=== PATIENT | male | born 1995 | race Hispanic/Latino ===

== ENCOUNTER 2021-02-19 18:02 | Emergency (ER) | payer OTHER, SELFPAY ==
[2021-02-19] MEDS ORDERED: ACETAMINOPHEN 500 MG TAB ONE (19:34)
--- NOTE | 2021-02-19 20:39 | EDPHYS ---
Physician Documentation [facility] Name: Jimmy Garcia Age: 25 yrs Sex: Male : 1995 Arrival Date: 02/19/2021 Time: 18:06 Bed Waiting Private MD: ED Physician Mohit Olmos HPI: 02/19 20:36 This 25 yrs old Male presents to ER via Ambulatory with complaints of Cough, kb Shortness Of Breath, Sore Throat. 20:36 The patient or guardian reports cough, that is intermittent, described as mild, kb difficulty breathing, flu symptoms, low-grade fever. Onset: The symptoms/episode began/occurred 3 day(s) ago. Severity of symptoms: At their worst the symptoms were mild, moderate, in the emergency department the symptoms are unchanged. Modifying factors: The symptoms are alleviated by nothing, the symptoms are aggravated by nothing. Associated signs and symptoms: Pertinent positives: fever, sore throat, Pertinent negatives: chest pain, diarrhea, ear ache, nausea, sore throat, vomiting. The patient has not experienced similar symptoms in the past. The patient has not recently seen a physician. Pt reports sore throat, fever, and difficulty breathing for 3 days. . Historical: - Allergies: 19:30 No Known Allergies; sm5 - PMHx: 19:30 None; sm5 - PSHx: 19:30 Repair of inguinal hernia; sm5 - Immunization history:: Client reports receiving the 2nd dose of the Covid vaccine. - Social history:: Smoking status: unknown. ROS: 20:37 Abdomen/GI: Negative for abdominal pain, nausea, vomiting, diarrhea, and constipation. kb 20:37 Constitutional: Positive for fever. 20:37 ENT: Positive for sore throat. 20:37 Respiratory: Positive for cough, shortness of breath. 20:37 All other systems are negative. Exam: 20:37 Constitutional: This is a well developed, well nourished patient who is awake, alert, kb and in no acute distress. Head/Face: Normocephalic, atraumatic. ENT: Moist Mucous membranes Cardiovascular: Regular rate and rhythm with a normal S1 and S2. No gallops, murmurs, or rubs. No pulse deficits. Respiratory: Respirations even and unlabored. No increased work of breathing. Talking in full sentences Skin: Warm, dry with normal turgor. Normal color. MS/ Extremity: Pulses equal, no cyanosis. Neurovascular intact. Full, normal range of motion. Neuro: Awake and alert, GCS 15, oriented to person, place, time, and situation. Moves all extremities. Normal gait. Psych: Awake, alert, with orientation to person, place and time. Behavior, mood, and affect are within normal limits. Vital Signs: 19:29 BP 114 / 63; Pulse 107; Resp 19; Temp 102(TE); Pulse Ox 100% on R/A; sm5 20:59 BP 115 / 69; Pulse 88; Resp 18; Temp 98.9; Pulse Ox 100% ; sm5 MDM: 19:32 Patient medically screened. 20:38 Data reviewed: vital signs, nurses notes. Data interpreted: Pulse oximetry: on room air kb is 100 %. Interpretation: normal. Counseling: I had a detailed discussion with the patient and/or guardian regarding: the historical points, exam findings, and any diagnostic results supporting the discharge/admit diagnosis, lab results, the need for outpatient follow up, a family practitioner, to return to the emergency department if symptoms worsen or persist or if there are any questions or concerns that arise at home. 02/19 19:32 Order name: Flu 02/19 19:32 Order name: Strep 02/19 19:32 Order name: COVID-19 (Coronavirus) Document "Date of Onset" if Symptomatic 02/19 19:33 Order name: Influenza Screen (A ; Complete Time: 20:36 [facility] 02/19 19:33 Order name: Group A Streptococcus Rapid Sc; Complete Time: 20:13 [facility] 02/19 19:33 Order name: CORONAVIRUS [facility] 02/19 20:03 Order name: Throat Culture [facility] Administered Medications: 19:34 Drug: Tylenol 1000 mg Route: PO; kb Disposition: 02/20 00:36 Co-signature as Attending Physician, Mohit Olmos MD. pkl Disposition Summary: 02/19/21 20:38 Discharge Ordered Location: Home Condition: Stable Diagnosis - Acute upper respiratory infection, unspecified kb Followup: kb - With: Emergency Department - When: As needed - Reason: Worsening of condition Followup: kb - With: Private Physician - When: 2 - 3 days - Reason: Recheck today's complaints, Continuance of care, Re-evaluation by your physician Discharge Instructions: - Discharge Summary Sheet kb - Upper Respiratory Infection, Adult, [id number] kb - Viral Respiratory Infection, [id number] kb Forms: - Medication Reconciliation Form kb - Thank You Letter kb - Antibiotic Education kb - Prescription Opioid Use kb Signatures: Dispatcher [employer] Liz Gross, AUSTINC ROSANNA-Mohit Martinez MD MD pkl Mazur, Sarah, RN RN sm5
--- NOTE | 2021-02-19 20:39 | ER ---
Nurse's Notes [facility] Name: Jimmy Garcia Age: 25 yrs Sex: Male : 1995 Arrival Date: 02/19/2021 Time: 18:06 Bed Waiting Private MD: Diagnosis: Acute upper respiratory infection, unspecified Presentation: 02/19 19:29 Chief complaint: Patient states: fever, sore throat, difficulty breathing for 3 days. sm5 Coronavirus screen: Vaccine status: Patient reports receiving the 2nd dose of the covid vaccine. difficulty breathing, fever, sore throat. Ebola Screen: No symptoms or risks identified at this time. Initial Sepsis Screen:. Onset of symptoms was February 16, 2021. 19:29 Method Of Arrival: Ambulatory [facility] 19:29 Acuity: MER 3 5 19:37 Initial Sepsis Screen: Does the patient meet any 2 criteria? Temp <36.0*C (96.8*F)) or sm5 > 38.3*C (100.9*F). HR > 90 bpm. Yes Does the patient have a suspected source of infection? No. Patient's initial sepsis screen is negative. Risk Assessment: Do you want to hurt yourself or someone else? Patient reports no desire to harm self or others. Triage Assessment: 19:31 General: Appears in no apparent distress. Behavior is cooperative. Pain: Complains of sm5 pain in throat. Respiratory: Reports shortness of breath cough that is Airway is patent Trachea midline Respiratory effort is even, unlabored, Onset: The symptoms/episode began/occurred 02/16/21, the patient has moderate shortness of breath. Historical: - Allergies: 19:30 No Known Allergies; sm5 - PMHx: 19:30 None; sm5 - PSHx: 19:30 Repair of inguinal hernia; sm5 - Immunization history:: Client reports receiving the 2nd dose of the Covid vaccine. - Social history:: Smoking status: unknown. Screenin:59 Abuse screen: Denies threats or abuse. Denies injuries from another. Nutritional sm5 screening: No deficits noted. Tuberculosis screening: No symptoms or risk factors identified. Fall Risk None identified. Assessment: 20:58 Reassessment: see triage assessment. Cardiovascular: Capillary refill < 3 seconds sm5 Patient's skin is warm and dry. Rhythm is regular. Respiratory: Airway is patent Trachea midline Respiratory effort is even, unlabored, Breath sounds are clear bilaterally. Vital Signs: 19:29 BP 114 / 63; Pulse 107; Resp 19; Temp 102(TE); Pulse Ox 100% on R/A; sm5 20:59 BP 115 / 69; Pulse 88; Resp 18; Temp 98.9; Pulse Ox 100% ; sm5 ED Course: 18:06 Patient arrived in ED. as 19:30 Triage completed. sm5 19:32 [facility] kb 19:32 Mohit Olmos MD is Attending Physician. kb 19:47 Influenza Screen (A Sent. sm5 19:47 Group A Streptococcus Rapid Sc Sent. sm5 19:47 CORONAVIRUS Sent. sm5 19:47 COVID-19 (Coronavirus) Document "Date of Onset" if Symptomatic Sent. sm5 19:47 Strep Sent. sm5 19:47 Flu Sent. sm5 20:59 No provider procedures requiring assistance completed. Patient did not have IV access sm5 during this emergency room visit. 20:59 Arm band placed on right wrist. sm5 20:59 Patient has correct armband on for positive identification. sm5 Administered Medications: 19:34 Drug: Tylenol 1000 mg Route: PO; kb Outcome: 20:38 Discharge ordered by . kb 20:59 Discharged to home ambulatory. sm5 20:59 Condition: good 20:59 Discharge instructions given to patient, Instructed on discharge instructions, follow up and referral plans. Demonstrated understanding of instructions, follow-up care. 21:00 Patient left the ED. 5 Signatures: Liz Negro FNP-C FNP-Ckb Martinez, Amelia as Mazur, Sarah, RN RN sm5 Corrections: (The following items were deleted from the chart) 19:32 19:29 Temp 102F Temporal; sm5 sm5
[2021-02-19 21:14] VITALS: O2SAT 100
[2021-02-19 21:15] VITALS: BP 115/69; TEMP 98.9
== END 2021-02-19 21:00 | disposition home or self-care (01) ==
LOC: ER 18:02
DX: U07.1 COVID-19 (principal); J06.9 Acute upper respiratory infection, unspecified
CPT/HCPCS: 87070; 87081; 87804; 99283; U0002